=== PATIENT | male | born 1965 ===

== ENCOUNTER 2020-06-04 19:40 | Inpatient (IN) | payer SELFPAY ==
[~2020-06-04 19:40] MED LIST: FLU VACC QS2020-21(6MOS UP)/PF 60 MCG/0.5 ML SYRINGE IM ONE
[2020-06-04] MEDS ORDERED: Dextrose 50% Abboject 50 ML SYRINGE SLOW IVP PRN (22:42)
[2020-06-04] MEDS ORDERED: Morphine 2 MG/ML VIAL SLOW IVP PRN ×2 (22:42→22:49)
[2020-06-04] MEDS ORDERED: Dextrose 5% in Water 1,000 ML IV PRN (22:42)
[2020-06-04] MEDS ORDERED: hydrALAZINE 20 MG/ML VIAL SLOW IVP PRN (22:42)
[2020-06-04] MEDS ORDERED: Ondansetron PF 4 MG/2 ML Vial IVP PRN (22:42)
[2020-06-04] MEDS ORDERED: traMADol HCl 50 MG TAB PO PRN (22:46)
[2020-06-04] MEDS ORDERED: Cyclobenzaprine 10 MG TAB PO PRN (22:46)
[2020-06-04 22:51] VITALS: BMI 26.8
[2020-06-04] MEDS ORDERED: Morphine 4 MG/ML VIAL SLOW IVP PRN (22:51)
[2020-06-04] MEDS: Acetaminophen 500 MG TAB PO SCH (22:57)
[2020-06-04] MEDS ORDERED: Sodium Chloride 0.9% 1,000 ML IV SCH (23:00)
[2020-06-04] MEDS ORDERED: Fentanyl 100 MCG/2 ML VIAL SLOW IVP SCH (23:00)
[2020-06-04] MEDS ORDERED: Vancomycin HCl 1.5 GM in Sodium Chloride 0.9% 250 ML 300 ML IVPB SCH (23:30)
[2020-06-04] MEDS ORDERED: Piperacillin/Tazobactam 3.375 GM in Sodium Chloride 0.9% 100 ML IVPB SCH (23:59)
[2020-06-05] MEDS: Sodium Chloride 0.9% 1,000 ML IV SCH ×2 (00:07→19:41)
[2020-06-05] MEDS: Piperacillin/Tazobactam 3.375 GM in Sodium Chloride 0.9% 100 ML IVPB SCH ×5 (00:07→22:39)
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
[2020-06-05] MEDS: Vancomycin 1.5 GRAM/300 ML BAG 1.5 GM in Premix Bag 1 BAG IVPB SCH ×2 (04:52→17:42)
[2020-06-05] MEDS: Oxazepam 10 MG CAP PO SCH ×3 (05:28→22:33)
[2020-06-05] MEDS: Acetaminophen 500 MG TAB PO SCH ×2 (05:28→19:47)
[2020-06-05 06:34] LABS: Anion Gap 16 mmol/L (10-20); BUN (Urea Nitrogen) 8 mg/dL (8.4-25.7); Calc. Creatinine Clearance 116 mL/min (70-130); Calcium 8.9 mg/dL (7.8-10.44); Carbon Dioxide 24 mmol/L (22-29); Chloride 103 mmol/L (98-107); Glucose 93 mg/dL (70-105); Magnesium 1.7 mg/dL (1.6-2.6); Potassium 3.6 mmol/L (3.5-5.1); Sodium 139 mmol/L (136-145)
[2020-06-05 06:47] LABS: Phosphorus 3.4 mg/dL (2.3-4.7)
[2020-06-05] MEDS ORDERED: Ondansetron PF 4 MG/2 ML Vial ONE (08:44)
[2020-06-05] MEDS ORDERED: Lidocaine 1% PF 5 ML VIAL ONE (08:44)
[2020-06-05] MEDS ORDERED: PROPOFOL 200 MG/20 ML VIAL ONE (08:44)
[2020-06-05] MEDS ORDERED: Dexamethasone 20 MG/5 ML VIAL ONE (08:44)
[2020-06-05 08:45] LABS: Hemoglobin 12.1 g/dL (14.0-18.0); MDiff Complete? YES; Mean Corpuscular HGB CONC 32.5 g/dL (32.0-36.0); Mean Corpuscular Hemoglobin 34.2 pg (27.0-31.0); Mean Platelet Volume 7.7 fL (7.4-10.4); Platelet Count 315 thou/uL (130-400); Polychromasia SLIGHT = 2-3 cells (100X) (0-2/hpf); RBC Distribution Width 11.7 % (11.5-14.5); Red Blood Cell (RBC) Count 3.53 mill/uL (4.70-6.10); White Blood Cell (WBC) Count 9.4 thou/uL (4.8-10.8)
[2020-06-05] MEDS: Famotidine/PF 20 mg/2ml Vial SLOW IVP SCH ×2 (09:13→20:16)
[2020-06-05] MEDS ORDERED: Potassium Phosphate 15 MMOL, Magnesium Sulfate 2 GM in Sodium Chloride 0.9% 250 ML 250 ML IVPB SCH (09:45)
[2020-06-05] MEDS: Folic Acid 1 MG TAB PO SCH (10:36)
[2020-06-05] MEDS: Multivitamin W/ Minerals 1 TAB PO SCH (10:36)
[2020-06-05] MEDS: Polyethylene Glycol 3350 17 GM Packet PO SCH (10:37)
[2020-06-05] MEDS: Senokot S 8.6-50 MG TAB PO SCH ×2 (10:37→20:16)
[2020-06-05] MEDS: Thiamine 100 MG TAB PO SCH (10:37)
[2020-06-05] MEDS ORDERED: Lidocaine 1% (PF) 30 ML VIAL ONE (12:20)
[2020-06-05] MEDS ORDERED: Bupivacaine 0.25% HCL 30 ML VIAL ONE (12:20)
[2020-06-05] MEDS ORDERED: EPINEPHrine 1 MG/ML AMP ONE (12:21)
[2020-06-05] MEDS ORDERED: Fentanyl 100 MCG/2 ML VIAL ONE ×4 (12:41→14:22)
--- NOTE | 2020-06-05 12:50 | CON ---
DATE OF CONSULTATION: 06/05/2020 HISTORY OF PRESENT ILLNESS: The patient is a 54-year-old right-hand dominant male, who suffered a fall about 2 weeks ago onto his right thumb. He presented to the hospital yesterday at [place] [facility]. The ER staff called me regarding possible right thumb infection. They also shot some x-rays which showed a dislocation of the IP joint. The patient did not seek any medical attention for his injury up until yesterday. They consulted their orthopedic surgeon who recommended hand surgery referral; therefore, the patient was transferred to [facility] overnight for further care and treatment of his injury. I examined the patient at bedside. He was resting comfortably. He had localized pain and swelling to the right thumb. He states that his injury occurred about 2 weeks ago. There was wound overlying the volar aspect around the IP joint, which appears to be draining pus. The thumb tip itself appears to be unhealthy in appearance. Flexor and extensor tendon function are extremely limited and not present on gross examination of the right thumb. He has erythema extending over the hand. He is nontender to palpation over the right palm and there is no adenopathy appreciated in the epitrochlear or axillary region. IMAGING STUDIES: Right thumb x-ray show a dislocated IP joint. CT scan shows the same. ASSESSMENT AND PLAN: Approximately 2-week-old right thumb IP joint dislocation with purulent flexor tenosynovitis and septic arthritis of right thumb IPJ. I discussed surgical and nonsurgical treatment with the patient. I discussed potential for saving the thumb and trying to reduce the dislocation, possibly performing a tendon repair. However, there is a possibility that given the chronicity of his injury that the cartilage is severely affected by both the infection and also the 2-week history of the IP joint dislocation, he is at high risk for osteomyelitis as well as chronic pain if he decides to salvage the thumb. We discussed amputation at the IP joint and washout today. The patient states that he would rather have a surgery that would be more definitive and so that he would not have to deal with any chronic pain issues or need any further surgeries down the road. He was agreeable to an amputation at the IP joint of the right thumb as well as a washout. I discussed all risks and goals associated with surgery. The goal of surgery is to improve upon the patient's right thumb injury. The risks associated with the surgery include, but are not limited to possible nerve injury, blood vessel injury, tendon injury, need for further surgery, chronic pain, adverse reaction to the anesthesia, etc. The patient voiced understanding and agrees to proceed with a washout of the right thumb as well as amputation at the IP joint of the right thumb. He is scheduled for surgery this afternoon. He will continue to remain admitted to the medicine service and receive IV antibiotics and Hand Surgery will follow him closely. Job ID: [id number] [facility]
[2020-06-05] MEDS ORDERED: Promethazine HCl 25 MG/ML VIAL ONE (14:16)
[2020-06-05] MEDS ORDERED: HYDROcodone/Acetaminophen 5/325 mg Tablet PO PRN (14:24)
[2020-06-05] MEDS ORDERED: Ibuprofen 200 MG TAB PO PRN (14:25)
[2020-06-05] MEDS: HYDROcodone/Acetaminophen 5/325 mg Tablet PO PRN ×2 (16:07→22:08)
--- NOTE | 2020-06-05 16:26 | OP ---
DATE OF PROCEDURE: 06/05/2020 PREOPERATIVE DIAGNOSIS: Right thumb interphalangeal joint dislocation with septic arthritis and flexor tenosynovitis, right thumb. POSTOPERATIVE DIAGNOSIS: Right thumb interphalangeal joint dislocation with septic arthritis and flexor tenosynovitis, right thumb. PROCEDURE PERFORMED: 1. Amputation of right thumb at the interphalangeal joint. 2. Incision and drainage and washout right thumb 3. Debridement of bone, tendon and skin/soft tissue right thumb ANESTHESIA: General and local. FINDINGS: There is purulence within the right thumb flexor tendon sheath and over the dorsum of the right thumb in the area of the IP joint. There is bone that appeared to be unhealthy in appearance involving the distal phalanx and also the distal portion of the proximal phalanx. There was pus within the IP joint as well. IMPLANTS: Quarter-inch Esteban drain and quarter-inch iodoform packing. TOURNIQUET TIME: 22 minutes. ESTIMATED BLOOD LOSS: Less than 10 mL. CONDITION: Stable. INDICATIONS FOR PROCEDURE: The patient is a 54-year-old male, who suffered an injury to his right thumb about 2 weeks ago. He did not seek any medical attention to it until recently. He was seen at [facility] and then transferred to [facility]. I was asked to see the patient by the ER staff at [facility] because they did not have a hand surgeon non cdl driver. The patient had ongoing history of swelling and pain and pus draining from his right thumb. Clinically, he was admitted to the Medicine service and he reported some swelling and pain originating from the thumb. On clinical examination, he had erythema extending up the hand and arm. We discussed surgical and nonsurgical treatment options. We discussed surgical treatment in the form of amputation of the IP joint. I stated that there was a high possibility that given the long-term affect of the IP joint and open dislocation, he is a high risk for osteomyelitis. He wished to undergo amputation. We discussed all risks and goals associated with this. He voiced understanding and agreed to proceed with a right thumb IP joint amputation, incision drainage, washout and debridement in the operating room. DESCRIPTION OF PROCEDURE: The patient was brought to the operating room, placed supine on the operating room table. Time-out was performed. Antibiotics had been given as scheduled. General anesthesia was induced by the anesthesia team. After a time-out was performed, right upper extremity tourniquet was applied. Right upper extremity was then prepped and draped under sterile aseptic conditions. There was a small wound over the volar aspect of the thumb in the area of the IP joint flexion crease, which was draining pus. The thumb appeared to have a fusiform appearance to it. There was erythema extending over the dorsum of the hand and the forearm. The patient's arm was exsanguinated using gravity. The tourniquet was inflated to 250 mmHg. A digital block was administered using 1% plain lidocaine to the right thumb. A circumferential fishmouth-type incision was made with a 15 blade scalpel going directly from the skin down to the bone in the IP joint. There was pus immediately encountered within the soft tissues and within the joint space. This was sent for culture and sensitivities. The IP joint was disarticulated. The bone at the distal portion of the proximal phalanx involving the condyles had a black bee appearance to it was unhealthy, so I used a rongeur to debride down to good bleeding bone. There was purulent drainage noted over the dorsum and the volar aspect of the thumb, the soft tissues, and around the proximal phalanx and within the flexor and extensor tendon sheaths, and was irrigated thoroughly using 3 L of sterile saline solution. I debrided the soft tissues as well as the infected tendon using a rongeur and also using a tenotomy scissor. I made incisions proximally over the dorsum of the thumb and left a quarter-inch Esteban drain in place and made an incision in the volar MP joint crease, dissected down to the flexor tendon sheath and then packed this. I closed the amputation incision loosely using 4-0 nylon suture and placed iodoform packing there. I deflated the tourniquet. The thumb displayed good capillary refill. There was good bleeding tissue appreciated. Xeroform was applied over the all wounds along with a bulky dressing. He was extubated and transported back to the recovery area in stable condition. He will remain admitted to the Internal Medicine service. Continue with his IV antibiotics vancomycin and Zosyn for broad-spectrum coverage. We will follow the culture and sensitivities and tailor the antibiotics accordingly. There is a possibility he may require further surgery; however, we will see how he responds to his initial surgery for now. Job ID: [id number] [facility]
[2020-06-05] MEDS: Cyclobenzaprine 10 MG TAB PO PRN (20:16)
[2020-06-06] MEDS: Piperacillin/Tazobactam 3.375 GM in Sodium Chloride 0.9% 100 ML IVPB SCH ×4 (02:14→20:21)
[2020-06-06] MEDS: Sodium Chloride 0.9% 1,000 ML IV SCH ×3 (02:14→18:05)
[2020-06-06] MEDS: Vancomycin 1.5 GRAM/300 ML BAG 1.5 GM in Premix Bag 1 BAG IVPB SCH (05:08)
[2020-06-06] MEDS: Oxazepam 10 MG CAP PO SCH ×3 (05:09→22:54)
[2020-06-06] MEDS: HYDROcodone/Acetaminophen 5/325 mg Tablet PO PRN ×4 (05:09→22:54)
[2020-06-06 05:45] LABS: Hemoglobin 11.4 g/dL (14.0-18.0); Mean Corpuscular HGB CONC 32.7 g/dL (32.0-36.0); Mean Corpuscular Hemoglobin 33.9 pg (27.0-31.0); Mean Platelet Volume 7.6 fL (7.4-10.4); Platelet Count 342 thou/uL (130-400); RBC Distribution Width 11.6 % (11.5-14.5); Red Blood Cell (RBC) Count 3.35 mill/uL (4.70-6.10); White Blood Cell (WBC) Count 10.2 thou/uL (4.8-10.8)
--- NOTE | 2020-06-06 05:55 | PRG ---
DATE OF SERVICE: 06/05/2020 SUBJECTIVE: Patient is resting comfortably in bed. He says his right hand is painful, however, pain meds seem to take off the edge. He is currently n.p.o. awaiting surgery with Dr. Gaines, Hand Surgery. He has no acute complaints. OBJECTIVE: VITAL SIGNS: Temperature 98, pulse 65, respiratory rate 16, SpO2 95% on room air, blood pressure 132/80. GENERAL: Alert and oriented, in no acute distress. GCS of 15. HEAD: Atraumatic, normocephalic. RESPIRATORY: Nonlabored breathing. Clear to auscultation bilaterally. CARDIAC: Strong S1, S2. No murmur. ABDOMEN: Soft, nontender, nondistended. EXTREMITIES: Patient moves all 4 extremities. His right hand is extremely swollen with some redness. There is an obvious puncture wound where he has his fracture which has pus. ASSESSMENT: 1. Status post open fracture of the right 1st phalanx with associated infection. 2. History of chronic alcohol abuse. PLAN: The patient is n.p.o. awaiting surgery with Dr. Gaines. We will follow up recommendations. After surgery we will work on pain control. We will have Serax ordered for alcohol withdrawal and also continue him on thiamine, folic acid, and multivitamin given history of chronic alcohol abuse. Dr. Strauss was present during morning rounds and he agreed to the above documentation and plan. Job ID: [id number] [facility]
[2020-06-06 06:09] LABS: ALT (SGPT) 10 U/L (8-55); AST (SGOT) 15 U/L (5-34); Albumin 3.3 g/dL (3.5-5.0); Alkaline Phosphatase 47 U/L (40-110); Anion Gap 13 mmol/L (10-20); BUN (Urea Nitrogen) 10 mg/dL (8.4-25.7); Bilirubin, Total 0.3 mg/dL (0.2-1.2); Calc. Creatinine Clearance 117 mL/min (70-130); Calcium 8.6 mg/dL (7.8-10.44); Carbon Dioxide 23 mmol/L (22-29); Chloride 105 mmol/L (98-107); Globulin 3.5 g/dL (2.4-3.5); Glucose 115 mg/dL (70-105); Magnesium 1.9 mg/dL (1.6-2.6); Phosphorus 3.5 mg/dL (2.3-4.7); Potassium 3.5 mmol/L (3.5-5.1); Protein, Total 6.8 g/dL (6.0-8.3); Sodium 137 mmol/L (136-145)
[2020-06-06] MEDS: Folic Acid 1 MG TAB PO SCH (08:24)
[2020-06-06] MEDS: Thiamine 100 MG TAB PO SCH (08:24)
[2020-06-06] MEDS: Multivitamin W/ Minerals 1 TAB PO SCH (08:24)
[2020-06-06] MEDS: Polyethylene Glycol 3350 17 GM Packet PO SCH (08:25)
[2020-06-06] MEDS: Senokot S 8.6-50 MG TAB PO SCH ×2 (08:25→20:21)
[2020-06-06] MEDS: Famotidine/PF 20 mg/2ml Vial SLOW IVP SCH ×2 (10:55→20:21)
[2020-06-06 16:48] LABS: Vancomycin, Trough 11.1 ug/mL
[2020-06-06] MEDS: Vancomycin HCl 1.75 GM in Sodium Chloride 0.9% 500 ML IVPB SCH (18:28)
[2020-06-06] MEDS: Cyclobenzaprine 10 MG TAB PO PRN (22:54)
[2020-06-07] MEDS: Sodium Chloride 0.9% 1,000 ML IV SCH ×2 (02:51→09:23)
[2020-06-07] MEDS: Piperacillin/Tazobactam 3.375 GM in Sodium Chloride 0.9% 100 ML IVPB SCH ×3 (02:51→15:13)
[2020-06-07] MEDS: Vancomycin HCl 1.75 GM in Sodium Chloride 0.9% 500 ML IVPB SCH ×2 (04:57→17:36)
[2020-06-07] MEDS: HYDROcodone/Acetaminophen 5/325 mg Tablet PO PRN (05:50)
[2020-06-07] MEDS: Oxazepam 10 MG CAP PO SCH ×2 (05:50→15:13)
--- NOTE | 2020-06-07 05:50 | PRG ---
DATE OF SERVICE: 06/06/2020 SUBJECTIVE: The patient is a 54-year-old male, who came in complaining of pain and drainage from his right thumb, was found to have an open fracture of right first phalanx with infection. Postop day #1, status post amputation of right thumb and washout and debridement with Dr. Gaines of Hand Surgery. The patient is sitting up in bed today and says his pain is well controlled. He is tolerating his diet without difficulty. He is urinating and passing bowel movements. He has no acute complaints. OBJECTIVE: VITAL SIGNS: Temperature 98.2, pulse 58, respiratory rate 14, SpO2 of 95% on room air, blood pressure 110/66. GENERAL: Alert, oriented, in no acute distress. GCS 15. HEAD: Atraumatic and normocephalic. RESPIRATORY: Nonlabored breathing. Clear to auscultation bilaterally. CARDIAC: Strong S1 and S2, no murmur. ABDOMEN: Soft, nontender, nondistended. EXTREMITIES: The patient moves all extremities. His right hand and upper extremity are in a splint right now, so it was unable to be examined. LABORATORY DATA: The patient has no white blood cell count and his electrolytes are within normal limits. RADIOGRAPHIC IMAGING: There are no new radiographic images to be reviewed. ASSESSMENT: 1. Status post open fracture of the right 1st phalanx with associated infection, status post amputation of right thumb and washout and debridement in the OR. 2. History of chronic alcohol abuse. PLAN: The patient is postop day 1. We will continue to follow up with recommendations from Dr. Gaines. According to his note, the patient may need to go back to the OR for further surgeries. At this time, we will continue with pain management, and ordered a walking program for the patient to make sure he is getting up and out of bed. We will use SCDs for DVT prophylaxis, given the fact the patient is low risk. Serax is ordered for the patient for alcohol withdrawal, given his chronic alcohol abuse. We will also continue him on thiamine, folic acid, and multivitamin. We will continue vancomycin and Zosyn at this time for antibiotics, and follow up on cultures as they become available. Dr. Strauss was present during morning rounds and he agreed with the above documentation and plan. Job ID: [id number] [facility]
[2020-06-07] MEDS: Multivitamin W/ Minerals 1 TAB PO SCH (08:55)
[2020-06-07] MEDS: Folic Acid 1 MG TAB PO SCH (08:55)
[2020-06-07] MEDS: Thiamine 100 MG TAB PO SCH (08:55)
[2020-06-07] MEDS: Polyethylene Glycol 3350 17 GM Packet PO SCH (08:56)
[2020-06-07] MEDS: Senokot S 8.6-50 MG TAB PO SCH (08:56)
[2020-06-07] MEDS: Famotidine/PF 20 mg/2ml Vial SLOW IVP SCH (08:56)
--- NOTE | 2020-06-07 09:33 | PRG ---
DATE OF SERVICE: 06/06/2020 SUBJECTIVE: The patient is a 54-year-old male seen on 06/06/2020, around 4:00 p.m. in the afternoon. He was seen postoperative day #1 status post amputation and I and D and washout of right thumb. Overall, he states that his pain is well controlled. He denies any fevers. He states that the swelling in his hand and arm has significantly improved since undergoing surgery yesterday. He is tolerating his antibiotics well. OBJECTIVE: GENERAL: The patient is resting comfortably in bed. He is awake and alert and oriented to person, place, and time. EXTREMITIES: Right upper extremity, there is no longer any erythema or erythema extending up the forearm. The swelling in his right hand is improved. There is no purulent drainage noted from the wound. There is packing in place over the volar right thumb wound. The stump appears to be perfusing well. There is a drain over the dorsum of the right thumb as well. All remaining fingers are neurovascularly intact. He is nontender to palpation of the right palm. LABORATORY DATA: Cultures show many gram-positive cocci in clusters as well as many gram-negative rods. Sensitivities are pending. ASSESSMENT AND PLAN: Postoperative day #1 status post amputation of right thumb and debridement washout. The patient should remain admitted to the hospital and continue with his IV antibiotics. It would be okay to consider an ID consultation for possible antibiosis coverage for this patient's multiple strain bacterial infection. He may begin hand soaks 3 to 4 times a day for 30- to 40-minute intervals in clean warm tap water mixed with Hibiclens. Packing was removed. I will leave the drain in place for at least 1 more day. Dressing changes can be performed by the nursing staff after each soak. I will plan on seeing the patient daily and if he continues to improve, we will consider discharge on potentially oral medications as per Internal Medicine or ID recommendations. Job ID: [id number]
[2020-06-07] MEDS: traMADol HCl 50 MG TAB PO PRN ×2 (11:31→16:57)
[2020-06-07 14:39] LABS: Fungus Stain Final report (.)
[2020-06-07 14:39] LABS: Fungus Stain Final report (.)
[2020-06-07 16:18] VITALS: BP 142/87; TEMP 97.9
--- NOTE | 2020-06-08 09:10 | PRG ---
DATE OF SERVICE: 06/07/2020 SUBJECTIVE: The patient is seen today. Postoperative day #2, he is resting comfortably in bed. He states that his pain is well-controlled and significantly improved compared to his preoperative symptoms. He denies any fevers. He has continued with his hand soaks as directed. He is tolerating his antibiotics well. PHYSICAL EXAMINATION: GENERAL: The patient is awake, alert, oriented x3. RIGHT UPPER EXTREMITY: There is a drain in place over the dorsum of the right thumb. The suture line and stump are well-approximated with nylon sutures and the incision over the volar aspect of the right thumb. MP joint flexion crease is also maintained. There is no purulent drainage noted. I do not appreciate any erythema over the hand. Swelling is significantly improved. I have instructed to see the patient's natural skin creases. I do not appreciate any purulence or fluctuance at this time. His pain is well-controlled. There is no adenopathy or lymphangitis appreciated. There is no pain in the palm. There is no erythema extending up the forearm. All other fingers have good flexion and extension and are all neurovascularly intact. Culture and sensitivities appreciated. ASSESSMENT AND PLAN: Postoperative day #2, status post incision, drainage, and washout and debridement, and amputation of the right thumb at the IP joint due to a 2-week-old open right thumb IP joint dislocation and associated septic arthritis and flexor tenosynovitis. The patient appears to be significantly improved. He should continue with hand soaks at home at least 2 or 3 times a day for 30 to 40 minutes intervals and clean warm tap water mixed with Hibiclens and dressing changes should be performed after each hand soaks. He should be discharged on oral antibiotics to cover the appropriate bacteria resulted on the culture and sensitivities. Oral antibiotics should be administered for at least 7 to 10 days. I will see him back in the Pain clinic around Wednesday to Wednesday of next week for further followup and treatment of the patient and potentially suture removal. Please feel free to call Dr. Gaines' cellphone [phone] for questions. Job ID: [id number]
--- NOTE | 2020-06-10 06:29 | PQF ---
CLINICAL DOCUMENTATION CLARIFICATION FORM: Dear : Chato Gaines Date / Time: 06/10/20 06:28 Please exercise your independent, professional judgment in responding to the clarification form. Clinical indicators are provided on the bottom of this form for your review __x_ Final Diagnosis on the Pathology report: Right thumb: Acute inflammation with associated necrosis. Acute cellulitis Please check appropriate box(es): [ x] Agree w the pathology finding of: [ ] Other explanation of pathology findings (please specify) [ ] Other diagnosis [ ] Unable to determine Physician Signature: Date/Time: For continuity of documentation, please document condition throughout progress notes and discharge summary. Thank You. To be completed by CDI/Coding staff for physician review: Present Clinical Indicators - Signs / Symptoms / Labs Results and Location in Medical Record [x] Right thumb: Acute inflammation with associated necrosis. Acute cellulitis Path report [x] complaining of pain and drainage from his right thumb HP 06/04 [x] Open fracture of right phalanx with infection HP 06/04 [x] Wound culture: gram positive cocci and gram negative rods PN 06/06 Present Risk Factors Results and Location in Medical Record [x] Alcohol Abuse HP 06/04 [x] Open fracture of right phalanx with infection HP 06/04 [x] Septic OA OP Note 06/05 [x] Tenosynovitis OP Note 06/05 Present Treatments Results and Location in Medical Record [x] Amputation OP Note 06/05 [x] IVF JUL 29 [x] Vancomycin 1.5gm IV JUL 29 CDS/Electric Clock Mechanic Signature: Jenna Holder Phone #: [phone] Date/Time: 06/10/20 This is a permanent part of the Medical Record [facility]
== END 2020-06-07 18:08 | disposition home or self-care (01) | DRG 513 ==
LOC: SJJU 21:55 → OBSVTOIN 21:55
PROVIDERS: ADMIT Specialist; ATTEND Specialist
PROC: 3E02340 Introduction of Influenza Vaccine into Muscle, Percutaneous Approach (ICD-10-PCS; principal; 2020-06-04)
PROC: 0X6L0Z0 Detachment at Right Thumb, Complete, Open Approach (ICD-10-PCS; 2020-06-05)
PROC: 0PBR0ZZ Excision of Right Thumb Phalanx, Open Approach (ICD-10-PCS; 2020-06-05)
DX: S62.501B Fracture of unspecified phalanx of right thumb, initial encounter for open fracture (principal); M00.841 Arthritis due to other bacteria, right hand; I96 Gangrene, not elsewhere classified; Z23 Encounter for immunization; W19.XXXA Unspecified fall, initial encounter; F17.210 Nicotine dependence, cigarettes, uncomplicated; F10.10 Alcohol abuse, uncomplicated; D64.9 Anemia, unspecified; M65.841 Other synovitis and tenosynovitis, right hand; B96.89 Other specified bacterial agents as the cause of diseases classified elsewhere; L03.011 Cellulitis of right finger
CPT/HCPCS: 36415; 80048; 80053; 80202; 83735; 84100; 85007; 85027; 87070; 87102; 87116; 87205; 87206; 88305; 88311; 90471; 90662; 90732; G0008; G0009; J0171; J1100; J2001; J2270; J2405; J2543; J2550; J2704; J3010; J3370; J3475; J3490; J7030; J7050; S0020; S0028